=== PATIENT | female | born 1980 | race Caucasian/White ===

== ENCOUNTER → 2017-10-12 | Outpatient (CLI) | payer BC ==
[~2017-10-12] MED LIST: ASCO-178 PO; AUG500 PO; CLA500 PO; DAR100 PO; ERYT-80 PO; HYDR-3083 PO; IBU800 PO; MULT1CAP59 PO; OMEP40CA79 PO; ONDA4TAB PO; PER PO; PREN-85 PO; TRA50 PO; VIT C
--- NOTE | 2017-10-12 18:07 | RADIOLOGY IMAGING REPORT ---
[facility] PATIENT NAME: Radha Clayton : 1980 MR: [id number] V: [id number] EXAM DATE: ORDERING PHYSICIAN: SANTOS HORAN TECHNOLOGIST: Location: [facility] Patient: Radha Clayton : 1980 Visit/Account:[id number] Date of Sevice: 10/12/2017 Exam type: HIP RIGHT History: Right hip pain x5 days, no known injury Comparison: None. Findings: Two views of the right hip demonstrate no evidence of acute fracture-dislocation or significant arthr itic change. No evidence of lytic or blastic bone lesion. Mild degenerative changes are seen at the pubic symphysis. Calcifications in the pelvis may represent phleboliths IMPRESSION: 1. No acute osteoarticular abnormality of the right hip is seen Report Dictated By: Ailyn Gambino MD at 10/12/2017 5:32 PM Report E-Signed By: Ailyn Gambino MD at 10/12/2017 5:32 PM WSN:[facility]
== END ==
LOC: RAD 15:57
PROVIDERS: ATTEND Chiropractor
DX: M25.551 Pain in right hip (principal)